=== PATIENT | female | born 1980 | race Asian ===

== ENCOUNTER 2022-01-09 02:51 | Emergency (ER) | payer OTHER ==
[~2022-01-09] VITALS: Ht 175.3 cm; Wt 58.4 kg
[2022-01-09] MEDS ORDERED: LORazepam 1 MG TABLET PO ONE (03:45)
[2022-01-09 04:49] VITALS: BP 108/75
== END 2022-01-09 05:05 | disposition home or self-care (01) ==
LOC: EMS 02:53
DX: F41.9 Anxiety disorder, unspecified (principal); Z79.899 Other long term (current) drug therapy
CPT/HCPCS: 93005; 99283